=== PATIENT | female | born 1985 | race Caucasian/White ===

== ENCOUNTER 2018-08-01 08:54 | Emergency (ER) | payer MEDICAID ==
[2018-08-01 09:08] VITALS: BP 111/63
--- NOTE | 2018-08-01 09:23 | EDPHY ---
H & P Stated Complaint: nausea diarrhea 3 days, increased anxiety Time Seen by Provider: 08/01/18 09:04 HPI/ROS: Chief Complaint: Chills, diarrhea, cough HPI: 33-year-old woman with a history of depression is presenting with 4 days of subjective chills, vomiting, diarrhea, cough and body aches. Patient had vomiting 2 nights ago but has not had any for the last 2 nights. Has had some loose stools. She is drinking fluids. Has had some body aches. Dry nonproductive cough. She has been taking Tylenol and Motrin. No difficulty breathing or shortness of breath. No urinary urgency or frequency. Has had some mild headaches. ROS: 10 systems were reviewed and were negative except those elements noted in the HPI. PMH: Depression Social History: No smoking Family History: non-contributory Physical Exam: Gen: Awake, Alert, No Distress HEENT: Ears: Normal Nose: no rhinorrhea Eyes: PERRLA, EOMI Mouth: Moist mucosa Neck: Supple, no JVD Chest: nontender, lungs clear to auscultation Heart: S1, S2 normal, no murmur Abd: Soft, non-tender, no guarding Back: no CVA tenderness, no midline tenderness Ext: no edema, non-tender Skin: no rash Neuro: CN II-XII intact, Sensation grossly intact, Strength 5/5 in bilateral upper and lower extremities - Personal History Tetanus Vaccine Date: 2008 - Medical/Surgical History Hx Asthma: No Hx Chronic Respiratory Disease: No Hx Diabetes: No Hx Cardiac Disease: No Hx Renal Disease: No Hx Cirrhosis: No Hx Alcoholism: No Hx HIV/AIDS: No Hx Splenectomy or Spleen Trauma: No Other PMH: bipoplar, anxiety, fibromyalgia, depression. wisdom teeth, kidney stone - Social History Smoking Status: Current every day smoker Constitutional: Initial Vital Signs Temperature (C) 37.2 C 08/01/18 09:04 Heart Rate 80 08/01/18 09:04 Respiratory Rate 18 08/01/18 09:04 Blood Pressure 111/63 08/01/18 09:04 O2 Sat (%) 95 08/01/18 09:04 O2 Delivery Mode Room Air Allergies/Adverse Reactions: Penicillins Allergy (Intermediate, Verified 08/01/18 09:07) Rash Home Medications: Medication Instructions Recorded [place] Carbonate 300 mg PO 02/03/12 Norgestimate-Ethinyl Estradiol 02/03/12 [Ortho Tri-Cyclen] Gabapentin 08/01/18 Hydroxyzine HCl 08/01/18 Propranolol Sr 08/01/18 Sertraline HCl 08/01/18 traZODone 08/01/18 Medical Decision Making ED Course/Re-evaluation: 33-year-old with flu-like symptoms. Benign exam today. She is well-hydrated. She is tolerating p.o. Fluids. Vital signs are normal. I have recommended continuing with supportive treatment, Tylenol alternating with Motrin, fluids, follow up with her doctor symptoms are not improving in about a week. Departure - Departure Disposition: Home, Routine, Self-Care Clinical Impression: Viral syndrome Condition: Good Instructions: Viral Syndrome (ED) Additional Instructions: Alternate acetaminophen (1000 mg) with ibuprofen (400 mg) every 4 hours as needed for fevers, chills, aches or pain. Drink plenty of fluids. Pedialyte is best when you are having vomiting or diarrhea. Follow up with primary care physician in 4-5 days if symptoms are not improving.
== END 2018-08-01 09:30 | disposition home or self-care (01) ==
LOC: CED 08:54
DX: B34.9 Viral infection, unspecified (principal)
CPT/HCPCS: 99282-ER